=== PATIENT | female | born 1995 | race Caucasian/White ===

== ENCOUNTER 2018-06-17 18:28 | Emergency (ER) | payer MEDICAID ==
[~2018-06-17] VITALS: Ht 165.1 cm; Wt 59.2 kg
[~2018-06-17 18:28] MED LIST: CLON-528 PO; FAMO-1 PO; PRED20TA PO
[2018-06-17] MEDS ORDERED: ipratropium/albuterol 3ml nebule NEB ONE (19:35)
[2018-06-17] MEDS ORDERED: predniSONE 20 mg tablet PO ONE (19:35)
[2018-06-17] MEDS ORDERED: ALBU8.5H8 IH (19:58)
[2018-06-17] MEDS ORDERED: PRED20TA PO (19:58)
[2018-06-17 20:12] VITALS: BP 123/62
== END 2018-06-17 20:25 | disposition home or self-care (01) ==
LOC: ER 18:29
DX: J20.9 Acute bronchitis, unspecified (principal); J45.909 Unspecified asthma, uncomplicated; K21.9 Gastro-esophageal reflux disease without esophagitis; Z88.8 Allergy status to other drugs, medicaments and biological substances; Z79.899 Other long term (current) drug therapy
CPT/HCPCS: 94640; 94760; 99283; J7512